=== PATIENT | female | born 1990 | race Caucasian/White ===

== ENCOUNTER 2018-05-16 19:53 | Inpatient (IN) | payer BC, OTHER ==
[~2018-05-16] VITALS: Ht 172.7 cm; Wt 103.0 kg
[2018-05-16] MEDS ORDERED: ONDANSETRON PF 4 MG/2 ML VIAL. IV ONE (20:00)
[2018-05-16] MEDS ORDERED: IV NORMAL SALINE 1,000ML 1,000 ML IV ONE ×4 (20:00→21:45)
[2018-05-16] MEDS ORDERED: MORPHINE SULFATE 4 MG/ML DISP.SYRIN. IV ONE (20:15)
[2018-05-16] MEDS ORDERED: IOHEXOL 300 MG/ML 75 ML VIAL. IV ONE (20:45)
[2018-05-16 21:07] LABS: BASO # 0.4 x10^3/uL (0.0-0.2); BASO % 1 % (0-3); EOS % 0 % (0-3); HEMATOCRIT 50.4 % (36.0-47.0); HEMOGLOBIN 16.1 g/dL (12.0-15.5); LYMPH # 1.6 x10^3/uL (1.0-4.8); LYMPH % 4 % (24-48); MEAN CORPUSCULAR HEMOGLOBIN 28 pg (25-35); MEAN CORPUSCULAR HGB CONC 32 g/dL (31-37); MEAN CORPUSCULAR VOLUME 89 fL (79-100); MONO % 3 % (0-9); NEUT # 33.8 x10^3uL (1.8-7.7); NEUT % 92 % (31-73); PLATELET COUNT 635 x10^3/uL (140-400); RED BLOOD COUNT 5.69 x10^6/uL (3.50-5.40); RED CELL DISTRIBUTION WIDTH 13.9 % (11.5-14.5); WHITE BLOOD COUNT 36.7 x10^3/uL (4.0-11.0)
--- NOTE | 2018-05-16 21:20 | PHYS DOC ---
Adult General Chief Complaint Chief Complaint abd pain HPI HPI 28 years old female presented emergency department with left upper quadrant pain associated with nausea and vomiting described his pain as a sharp constant pain radiated to the epigastric area no fever no chills no urinary symptoms Review of Systems Review of Systems Constitutional: Denies fever or chills [] Eyes: Denies change in visual acuity, redness, or eye pain [] HENT: Denies nasal congestion or sore throat [] Respiratory: Denies cough or shortness of breath [] Cardiovascular: No additional information not addressed in HPI [] : Denies dysuria or hematuria [] Musculoskeletal: Denies back pain or joint pain [] Integument: Denies rash or skin lesions [] Neurologic: Denies headache, focal weakness or sensory changes [] Endocrine: Denies polyuria or polydipsia [] All other systems were reviewed and found to be within normal limits, except as documented in this note. Current Medications Current Medications Current Medications Medications (Trade) Dose Ordered Sig/Christa Start Time Stop Time Status Last Admin Dose Admin Insulin Human Regular (HumuLIN R VIAL) 10 unit 1X ONCE 05/16/18 21:45 05/16/18 21:46 DC 05/16/18 21:57 10 UNIT Insulin Human Regular 150 unit/ Sodium Chloride 151.5 ml @ 0 mls/hr 1X ONCE 05/16/18 22:00 05/16/18 22:01 DC Iohexol (Omnipaque 300 Mg/ml) 75 ml 1X ONCE 05/16/18 20:45 05/16/18 20:46 DC Morphine Sulfate (Morphine 4mg Syringe) 4 mg 1X ONCE 05/16/18 20:15 05/16/18 20:17 DC 05/16/18 21:01 4 MG Ondansetron HCl (Zofran) 4 mg 1X ONCE 05/16/18 20:00 05/16/18 20:17 DC 05/16/18 21:02 4 MG Sodium Chloride 1,000 ml @ 200 mls/hr 1X ONCE 05/16/18 21:45 05/17/18 02:44 Allergies Allergies Allergies Coded Allergies Type Severity Reaction Last Updated Verified No Known Drug Allergies 05/16/18 No Physical Exam Physical Exam Constitutional: Well developed, well nourished, no acute distress, non-toxic appearance. [] HENT: Normocephalic, atraumatic, bilateral external ears normal, oropharynx moist, no oral exudates, nose normal. [] Eyes: PERRLA, EOMI, conjunctiva normal, no discharge. [] Neck: Normal range of motion, no tenderness, supple, no stridor. [] Cardiovascular:Heart rate regular rhythm, no murmur [] Lungs & Thorax: Bilateral breath sounds clear to auscultation [] Abdomen: Tender left upper quadrant epigastric area with rebound tenderness Skin: Warm, dry, no erythema, no rash. [] Back: No tenderness, no CVA tenderness. [] Extremities: No tenderness, no cyanosis, no clubbing, ROM intact, no edema. [] Neurologic: Alert and oriented X 3, normal motor function, normal sensory function, no focal deficits noted. [] Psychologic: Affect normal, judgement normal, mood normal. [] Current Patient Data Vital Signs Vital Signs Date Time Temp Pulse Resp B/P (MAP) Pulse Ox O2 Delivery O2 Flow Rate FiO2 05/16/18 21:01 20 Room Air 05/16/18 20:05 97.4 115 100 Lab Results Laboratory Tests Test 05/16/18 20:50 05/16/18 21:00 05/16/18 21:07 05/16/18 21:27 White Blood Count 36.7 x10^3/uL (4.0-11.0) H Red Blood Count 5.69 x10^6/uL (3.50-5.40) H Hemoglobin 16.1 g/dL (12.0-15.5) H Hematocrit 50.4 % (36.0-47.0) H Mean Corpuscular Volume 89 fL (79-100) Mean Corpuscular Hemoglobin 28 pg (25-35) Mean Corpuscular Hemoglobin Concent 32 g/dL (31-37) Red Cell Distribution Width 13.9 % (11.5-14.5) Platelet Count 635 x10^3/uL (140-400) H Neutrophils (%) (Auto) 92 % (31-73) H Lymphocytes (%) (Auto) 4 % (24-48) L Monocytes (%) (Auto) 3 % (0-9) Eosinophils (%) (Auto) 0 % (0-3) Basophils (%) (Auto) 1 % (0-3) Neutrophils # (Auto) 33.8 x10^3uL (1.8-7.7) H Lymphocytes # (Auto) 1.6 x10^3/uL (1.0-4.8) Monocytes # (Auto) 1.0 x10^3/uL (0.0-1.1) Eosinophils # (Auto) 0.0 x10^3/uL (0.0-0.7) Basophils # (Auto) 0.4 x10^3/uL (0.0-0.2) H Platelet Estimate Pending Sodium Level 133 mmol/L (136-145) L Potassium Level 5.8 mmol/L (3.5-5.1) H Chloride Level 96 mmol/L (98-107) L Carbon Dioxide Level < 5 mmol/L (21-32) *L Anion Gap 32 (6-14) H Blood Urea Nitrogen 33 mg/dL (7-20) H Creatinine 1.2 mg/dL (0.6-1.0) H Estimated GFR (Cockcroft-Gault) 54.3 BUN/Creatinine Ratio 28 (6-20) H Glucose Level 580 mg/dL (70-99) *H Calcium Level 9.4 mg/dL (8.5-10.1) Total Bilirubin 0.4 mg/dL (0.2-1.0) Aspartate Amino Transferase (AST) 15 U/L (15-37) Alanine Aminotransferase (ALT) 20 U/L (14-59) Alkaline Phosphatase 125 U/L (46-116) H Total Protein 9.1 g/dL (6.4-8.2) H Albumin 4.3 g/dL (3.4-5.0) Albumin/Globulin Ratio 0.9 (1.0-1.7) L Lipase 151 U/L (73-393) Lactic Acid Level 3.4 mmol/L (0.4-2.0) H Urine Collection Type Unknown Urine Color Yellow Urine Clarity Clear Urine pH 5.0 Urine Specific [place] 1.025 Urine Protein 100 mg/dl (NEG-TRACE) Urine Glucose (UA) 500 mg/dL (NEG) Urine Ketones (Stick) >=160 mg/dL (NEG) Urine Blood Large (NEG) Urine Nitrite Neg (NEG) Urine Bilirubin Neg (NEG) Urine Urobilinogen Dipstick 0.2 mg/dL (0.2 mg/dL) Urine Leukocyte Esterase Neg (NEG) Urine RBC 11-20 /HPF (0-2) Urine WBC 1-4 /HPF (0-4) Urine Squamous Epithelial Cells Many /LPF Urine Bacteria Few /HPF (0-FEW) Serum Test, Qualitative Negative (NEG) Glucose (Fingerstick) 529 mg/dL (70-99) *H EKG EKG [] Radiology/Procedures Radiology/Procedures [] Course & Med Decision Making Course & Med Decision Making Pertinent Labs and Imaging studies reviewed. (See chart for details) [] Final Impression Final Impression [] Problems: (1) DKA, type 1 Qualifiers: Qualified Codes: E10.10 - Type 1 diabetes mellitus with ketoacidosis without coma Dragon Disclaimer Dragon Disclaimer This electronic medical record was generated, in whole or in part, using a voice recognition dictation system. COLLEEN PAL MD May 16, 2018 21:20
[2018-05-16 21:26] LABS: ALBUMIN 4.3 g/dL (3.4-5.0); ALBUMIN/GLOBULIN RATIO 0.9 (1.0-1.7); ALK PHOS 125 U/L (46-116); ALT (SGPT) 20 U/L (14-59); AST (SGOT) 15 U/L (15-37); BLOOD UREA NITROGEN 33 mg/dL (7-20); BUN/CREATININE RATIO 28 (6-20); CALCIUM 9.4 mg/dL (8.5-10.1); CHLORIDE 96 mmol/L (98-107); CREATININE 1.2 mg/dL (0.6-1.0); GFR 54.3; LIPASE 151 U/L (73-393); POTASSIUM 5.8 mmol/L (3.5-5.1); SODIUM 133 mmol/L (136-145); TOTAL BILIRUBIN 0.4 mg/dL (0.2-1.0); TOTAL PROTEIN 9.1 g/dL (6.4-8.2)
[2018-05-16 21:33] LABS: ANION GAP 32 (6-14); CARBON DIOXIDE < 5 mmol/L (21-32); GLUCOSE 580 mg/dL (70-99)
[2018-05-16 21:40] LABS: PREG TEST PT QUAL NEGATIVE (NEG)
[2018-05-16] MEDS ORDERED: INSULIN REGULAR 100 UNIT/ML 3ML VIAL. IV ONE (21:45)
[2018-05-16 21:50] LABS: BILIRUBIN,URINE NEG (NEG); CLARITY,URINE CLEAR; COLOR,URINE YELLOW; GLUCOSE,URINE 500 mg/dL (NEG)
[2018-05-16 21:51] LABS: BACTERIA,URINE FEW /HPF (0-FEW); NITRITE,URINE NEG (NEG); SQUAMOUS EPITHELIAL CELL,UR MANY /LPF; UROBILINOGEN,URINE 0.2 mg/dL (0.2 mg/dL)
[2018-05-16] MEDS ORDERED: INSULIN REGULAR VIAL 150 UNIT in 0.9 % SODIUM CHLORIDE 150ML 150 ML IV ONE (22:00)
[2018-05-16 22:13] LABS: % BANDS 1 % (0-9); % LYMPHS 7 % (24-48); % MONOS 1 % (0-10)
[2018-05-16 22:15] LABS: PLT ESTIMATE INCREASED (ADEQUATE)
[2018-05-16] MEDS ORDERED: ACETAMINOPHEN 325 MG TABLET PO PRN (22:15)
[2018-05-16 22:22] LABS: % ATYL 1 % (0-0)
--- NOTE | 2018-05-16 23:50 | RAD ---
Examination: CT ABD PELV W/ IV CONTRST ONLY History: luq abdominal pain, diabetic ketoacidosis, high lactic acid, no medical history besides being diabetic and has an insulin pump. Started not to feel well this morning.
gave Omni 300 75 ml iv -2 scan attempts, couldn't hold breath Comparison/Correlation: None Findings: Axial images of the abdomen and pelvis were obtained following 75 cc Omnipaque 300 IV. Significant motion is noted despite scanning the patient twice. The second scan was only of the abdomen. Visualized lung bases are clear. Fluid distends the stomach. Liver is unremarkable. Spleen is normal. Pancreas is normal. Adrenal glands are normal. Kidneys are normal. Large quantity of stool is present in the colon. Appendix is normal in appearance. Diverticulosis of the colon is present. Urinary bladder is distended. Right adnexal follicles are physiologic in appearance. Uterus is unremarkable. No ascites. Minimal pelvic free fluid is presumably physiologic. Bony structures are unremarkable. Sclerotic lesion involving the right femoral neck is appearance. No destructive Impression: Fluid distends the stomach. Fatty infiltration of the liver. No suspicious inflammatory process definitely identified but this exam is very limited due to significant motion. No obstruction. Diverticulosis. Electronically signed by: Titus Granados MD (05/16/2018 11:46 PM) [facility]
[2018-05-17] VITALS (19 sets, daily range): BP systolic 103–155; BP diastolic 50–85
[2018-05-17] MEDS: ONDANSETRON PF 4 MG/2 ML VIAL. IV PRN ×2 (00:10→09:51)
[2018-05-17] MEDS ORDERED: IV DEXTROSE 5 %-0.45 % NACL 1,000 ML IV SCH (00:30)
[2018-05-17] MEDS ORDERED: INSULIN REGULAR VIAL 150 UNIT in 0.9 % SODIUM CHLORIDE 150ML 150 ML IV PRN (00:30)
[2018-05-17] MEDS ORDERED: MAGNESIUM SULFATE 2GM 50 ML IV PRN (00:30)
[2018-05-17] MEDS: MORPHINE SULFATE 4 MG/ML DISP.SYRIN. IV PRN ×2 (00:47→14:17)
[2018-05-17 03:17] LABS: HEMATOCRIT 44.8 % (36.0-47.0); HEMOGLOBIN 14.7 g/dL (12.0-15.5); RED BLOOD COUNT 5.14 x10^6/uL (3.50-5.40); RED CELL DISTRIBUTION WIDTH 13.6 % (11.5-14.5); WHITE BLOOD COUNT 34.5 x10^3/uL (4.0-11.0)
[2018-05-17 03:34] LABS: ALBUMIN 3.5 g/dL (3.4-5.0); ALBUMIN/GLOBULIN RATIO 0.8 (1.0-1.7); CALCIUM 7.9 mg/dL (8.5-10.1); CREATININE 1.1 mg/dL (0.6-1.0); MAGNESIUM 1.9 mg/dL (1.8-2.4); POTASSIUM 4.7 mmol/L (3.5-5.1); TOTAL BILIRUBIN 0.4 mg/dL (0.2-1.0); TOTAL PROTEIN 7.8 g/dL (6.4-8.2)
[2018-05-17] MEDS: IV NORMAL SALINE 1,000ML 1,000 ML IV SCH ×3 (05:09→08:28)
[2018-05-17 07:05] LABS: HEMATOCRIT 41.2 % (36.0-47.0); HEMOGLOBIN 13.8 g/dL (12.0-15.5); RED BLOOD COUNT 4.89 x10^6/uL (3.50-5.40); RED CELL DISTRIBUTION WIDTH 12.9 % (11.5-14.5)
[2018-05-17 07:23] LABS: ALBUMIN 3.2 g/dL (3.4-5.0); ALBUMIN/GLOBULIN RATIO 0.8 (1.0-1.7); CALCIUM 7.7 mg/dL (8.5-10.1); PHOSPHORUS 1.5 mg/dL (2.6-4.7); POTASSIUM 4.1 mmol/L (3.5-5.1); TOTAL BILIRUBIN 0.4 mg/dL (0.2-1.0); TOTAL PROTEIN 7.1 g/dL (6.4-8.2)
[2018-05-17] MEDS ORDERED: DEXTROSE 50% 25 GM / 50ML DISP.SYRIN. IV PRN (08:00)
[2018-05-17] MEDS ORDERED: POTASSIUM CHLORIDE 20 MEQ in IV DEXTROSE 5 %-0.45 % NACL 1,000 ML IV SCH (08:00)
[2018-05-17] MEDS ORDERED: MAGNESIUM SULFATE 2GM 50 ML IV ONE (08:00)
[2018-05-17] MEDS: INSULIN LISPRO 300 UNITS/3 ML INSULN.PEN. SQ SCH ×2 (08:00→12:00)
[2018-05-17] MEDS: POTASSIUM CL 20MEQ D5-0.45NACL 1,000 ML IV SCH ×2 (08:58→14:18)
[2018-05-17] MEDS: VANCOMYCIN PER PHARMACY MC PRN (09:30)
--- NOTE | 2018-05-17 09:46 | RAD ---
CHEST AP ONLY History: INCREASED WBC. Comparison: March 07, 2010 image but no report Cardiomediastinal silhouette: Not grossly enlarged. Central vascularity appears slightly congested. Lungs: Low lung volumes. Hazy opacity in both lungs likely due to crowding and atelectasis, no focal lobar airspace consolidation. Pleura: No evidence of pleural effusion. Pneumothorax: None visualized Support Devices: None. Impression: 1. No focal infiltrate. 2. Apparent central vascular congestion and hazy pulmonary opacity may just be due to low lung volumes, although congestion and mild edema is possible depending on clinical correlation. Electronically signed by: Joshua Osorio MD (05/17/2018 9:43 AM) [id number]
[2018-05-17] MEDS: BISACODYL 10 MG SUPP.RECT PR ONE ×2 (10:00→11:50)
[2018-05-17] MEDS ORDERED: VANCOMYCIN 2 GM in IV NORMAL SALINE 500ML 500 ML IV ONE (11:00)
[2018-05-17] MEDS: HEPARIN for SUB-Q USE 5,000 UNIT/ML VIAL. SQ SCH ×2 (14:17→22:30)
[2018-05-17] MEDS ORDERED: IOHEXOL 300 MG/ML 75 ML VIAL. IV ONE ×2 (14:30→18:15)
[2018-05-17] MEDS ORDERED: IOHEXOL 300 MG/ML 50 ML VIAL. IV ONE (14:30)
--- NOTE | 2018-05-17 16:58 | RAD ---
Examination: CT angiography chest History: History of elevated d-dimer, shortness of breath COMPARISON: None available Technique: Axial CT angiography images of chest were performed with IV contrast. Coronal and sagittal 3-D MIP reformats are performed. Exposure: One or more of the following individualized dose reduction techniques were utilized for this examination: 1. Automated exposure control 2. Adjustment of the mA and/or kV according to patient size 3. Use of iterative reconstruction technique FINDINGS: The central airways are patent. The heart size grossly appears unremarkable. The caliber of the aorta grossly appears unremarkable. There is no evidence of filling defect identified in the main pulmonary arterial trunk and right and left main pulmonary arteries. No evidence of filling defect identified in the distal lobar, segmental branch of the pulmonary arteries. Minimal bibasilar lung atelectasis or infiltrates. No evidence of pleural effusion or pneumothorax. Partially visualized liver, spleen, grossly appears unremarkable. No evidence of lytic bony destructive lesion identified. IMPRESSION: 1. No evidence of pulmonary embolism. 2. Mild bibasilar lung airspace opacities likely atelectasis or infiltrates. Electronically signed by: Norman Roca MD (05/17/2018 4:54 PM) [id number]
[2018-05-17 17:15] LABS: CALCIUM 7.2 mg/dL (8.5-10.1); CREATININE 0.7 mg/dL (0.6-1.0); GFR 101.1; POTASSIUM 3.4 mmol/L (3.5-5.1)
--- NOTE | 2018-05-17 17:21 | RAD ---
Examination: CT HEAD AND MAXILLOFACIAL WO History: CT HEAD AND FACIALS FOR SINUS CONGESTION
Comparison/Correlation: None Findings: Axial images of the head and maxillofacial structures were obtained. Sagittal and coronal reformatted images of the maxillofacial structures was provided. Ventricles are normal size. No intracranial hemorrhage, midline shift, or mass effect. Globes and optic nerves are unremarkable. Frontal sinuses are clear. Mucosal thickening of ethmoid air cells is evident. Mild mucosal thickening of sphenoid sinuses. Mild mucosal thickening of maxillary sinuses. There is no fluid level to suggest acute sinusitis. Opacification of maxillary sinus ostia bilaterally noted greater on the right. Complete opacification right maxillary ostium noted. Near-complete opacification of the left maxillary ostium. Mastoid air cells are unremarkable. Impression: Chronic paranasal sinusitis. Opacification of the right maxillary sinus ostium is completely. Near complete left maxillary sinus ostium opacification. No findings of acute sinusitis. No intracranial hemorrhage. Electronically signed by: Titus Granados MD (05/17/2018 5:18 PM) [facility]
[2018-05-17] MEDS ORDERED: POTASSIUM CL 40MEQ D5-0.45NACL 1,000 ML IV ONE (17:50)
[2018-05-17] MEDS ORDERED: POTASSIUM CHLORIDE 20 MEQ TABLET.ER. PO ONE (18:00)
[2018-05-17] MEDS ORDERED: INSULIN LISPRO 300 UNITS/3 ML INSULN.PEN. SQ PRN (18:15)
[2018-05-17] MEDS ORDERED: INSU100I17 SQ (18:54)
[2018-05-17 19:10] LABS: HEMOGLOBIN A1C 10.4 % (4.8-5.6)
--- NOTE | 2018-05-17 20:08 | HP ---
ADMIT DATE: 05/16/2018 HISTORY OF PRESENT ILLNESS: This is a 28-year-old type 1 diabetic came in through the Emergency Room and not been feeling well for the last several days. Prior to admission, the patient was feeling rundown and tired, came in through the Emergency Room, was found to be in DKA. The patient was also having severe nausea, vomiting, and abdominal pain in her left upper quadrant area. The patient showed marked DKA. She had a white count of 36,000 (NC). The patient's initial blood sugar was 580, creatinine of 1.2, lactic acid of 3.4 (NC). The patient's sodium and potassium 133 low and the potassium is high at 5.8. D-dimer was also elevated. Ketones in urine greater than 160 and also red blood cells in the urine. The patient was admitted for DKA for fluids and protocol per the type 1 DKA protocol, insulin drip, plenty of fluids and further evaluation of electrolytes. PAST MEDICAL HISTORY: Type 1 diabetes, abdominal pain, obesity, nausea, and vomiting. IMMUNIZATIONS: Tetanus, diphtheria toxoid, all up to date. Methicillin-resistant history, and MRSA. ALLERGIES: No known drug allergies. FAMILY HISTORY: Positive for heart disease and diabetes. SOCIAL HISTORY: The patient denies smoking, alcohol or drug use. REVIEW OF SYSTEMS: Abdominal pain with nausea, vomiting, general weakness, and lethargy noted. Denied chest pain, shortness of breath. Denies any melena, hematochezia, or hematemesis. Neurologically, intact. PHYSICAL EXAMINATION: GENERAL: This is a very ill-appearing white female. VITAL SIGNS: Blood pressure approximately 153/90 upwards of 170/80, pulse of 126, temperature 98.2, respiratory rate 32, and oxygen saturation 100%. HEENT: Otherwise, the patient's head was atraumatic, normocephalic. Eyes: PERRLA without jaundice. The mouth and throat were normal. NECK: Supple without JVD, carotid bruits or thyromegaly. LUNGS: Diminished, but clear. CARDIOVASCULAR: Regular sinus rhythm. ABDOMEN: Soft, diffuse tenderness in the left upper quadrant area, but no rebounding, no guarding. Positive bowel sounds, no hepatosplenomegaly was noted. EXTREMITIES: No clubbing, cyanosis, or edema. Mucous membranes were dry. IMPRESSION: Type 1 diabetes with diabetic ketoacidosis, probable sepsis, hypokalemia, chronic kidney disease stage 3, elevated D-dimer, and hematuria, nonspecific in the urine. The patient otherwise is resting fairly comfortably, making fairly good progress overall. The patient did have chronic paranasal sinusitis (NC) opacification of the right maxillary sinus ostium near complete maxillary sinus ostium, could be the source of her white count, these were chronic findings. However, her white count was elevated at 36,000 (NC), she started on vancomycin and Levaquin, make further evaluation on her as indicated and we will continue to monitor the patient accordingly and make further assessment as noted. Impression therefore of as noted above, sepsis, type 1 diabetic ketoacidosis. Continue with IV antibiotic therapy, fluids, and ICU intensive. LD RING MD DR: CAITLYN/dedra JOB#: [id number] / [id number]
[2018-05-17] MEDS: IPRATRPIUM/ALBUTEROL 0.5/2.5MG 3 ML NEBU. NEB PRN (20:51)
[2018-05-17] MEDS: VANCOMYCIN 1.5 GM in IV NORMAL SALINE 500ML 500 ML IV SCH (22:58)
[2018-05-17] MEDS: POTASSIUM CL 40MEQ D5-0.45NACL 1,000 ML IV SCH (23:38)
[2018-05-18] VITALS (11 sets, daily range): BP systolic 107–140; BP diastolic 52–81
[2018-05-18] MEDS: POTASSIUM CL 40MEQ D5-0.45NACL 1,000 ML IV SCH ×2 (05:14→10:17)
[2018-05-18 05:53] LABS: BASO % 0 % (0-3); EOS % 0 % (0-3); HEMATOCRIT 34.9 % (36.0-47.0); LYMPH # 1.7 x10^3/uL (1.0-4.8); LYMPH % 13 % (24-48); MEAN CORPUSCULAR HEMOGLOBIN 29 pg (25-35); MEAN CORPUSCULAR HGB CONC 35 g/dL (31-37); MEAN CORPUSCULAR VOLUME 83 fL (79-100); MONO # 0.9 x10^3/uL (0.0-1.1); MONO % 7 % (0-9); NEUT # 10.9 x10^3uL (1.8-7.7); NEUT % 80 % (31-73); PLATELET COUNT 319 x10^3/uL (140-400); RED BLOOD COUNT 4.22 x10^6/uL (3.50-5.40); RED CELL DISTRIBUTION WIDTH 13.4 % (11.5-14.5); WHITE BLOOD COUNT 13.6 x10^3/uL (4.0-11.0)
[2018-05-18] MEDS: HEPARIN for SUB-Q USE 5,000 UNIT/ML VIAL. SQ SCH ×3 (05:54→20:29)
[2018-05-18 06:03] LABS: CALCIUM 7.6 mg/dL (8.5-10.1); CREATININE 0.6 mg/dL (0.6-1.0); GFR 120.8; POTASSIUM 3.7 mmol/L (3.5-5.1)
[2018-05-18] MEDS ORDERED: IPRATRPIUM/ALBUTEROL 0.5/2.5MG 3 ML NEBU. NEB SCH ×2 (09:00→21:00)
[2018-05-18] MEDS: IPRATRPIUM/ALBUTEROL 0.5/2.5MG 3 ML NEBU. NEB PRN (10:13)
[2018-05-18] MEDS: LACTOBACILLUS RHAMNOSUS GG 1 CAPSULE. PO SCH ×2 (10:16→20:26)
[2018-05-18] MEDS: VANCOMYCIN 1.5 GM in IV NORMAL SALINE 500ML 500 ML IV SCH ×2 (11:42→22:24)
[2018-05-18] MEDS ORDERED: ONDANSETRON PF 4 MG/2 ML VIAL. ONE (12:23)
[2018-05-18] MEDS ORDERED: ONDANSETRON PF 4 MG/2 ML VIAL. IV PRN (12:30)
[2018-05-18] MEDS ORDERED: DEXTROSE 50% 25 GM / 50ML DISP.SYRIN. IV PRN (13:15)
[2018-05-18] MEDS ORDERED: INSULIN LISPRO 300 UNITS/3 ML INSULN.PEN. SQ SCH (17:00)
--- NOTE | 2018-05-18 19:48 | PN ---
DATE: SUBJECTIVE: The patient first came in with DKA. She is doing much better overall. Sugars are down in the 100s to low 200s right now and the patient seems to be making feeling much, much better. The patient in turn, white count has come down from 36,000 down to 13,000. She still continues on IV antibiotic therapy. We are going ahead and keeping her on those antibiotics. We will take her off her fluids and turn her back over to her insulin pump to see if we can control her sugar that way. I think she still needs the IV antibiotic therapy. She does have instances of chronic sinusitis, which may have been "was instigating'' that. The urine was unremarkable as far as cultures go. The patient's CTA because of the positive D-dimer were negative except for possible atelectasis or infiltrates, which were mild. In any case, the patient is making excellent progress and we are adjusting her continue with giving her back on her insulin pump monitoring that as well as IV antibiotic therapy. Her heart rate still in the low 100s and we will continue to monitor that. She is not having any symptoms with that she is perfectly asymptomatic with that situation at hand. IMPRESSION: Diabetic ketoacidosis, sepsis, hypokalemia, chronic kidney disease stage 3, elevated D-dimer, hematuria, leukocytosis, chronic sinusitis. PLAN: Continue with IV antibiotic therapy for now, convert back over to her insulin pump, continue monitor for any other changes. LD RING MD DR: CAITLYN/dedra JOB#: [id number] / [id number]
[2018-05-18] MEDS ORDERED: POTASSIUM CHLORIDE 20 MEQ TABLET.ER. PO ONE (21:00)
[2018-05-18 22:26] LABS: VANC TR 8.6 mcg/mL (10.0-20.0)
[2018-05-19] MEDS: HEPARIN for SUB-Q USE 5,000 UNIT/ML VIAL. SQ SCH (04:59)
[2018-05-19 05:36] VITALS: BP 129/84
[2018-05-19 06:15] LABS: BASO # 0.1 x10^3/uL (0.0-0.2); BASO % 1 % (0-3); EOS % 0 % (0-3); HEMATOCRIT 34.2 % (36.0-47.0); LYMPH # 1.9 x10^3/uL (1.0-4.8); LYMPH % 30 % (24-48); MEAN CORPUSCULAR HEMOGLOBIN 29 pg (25-35); MEAN CORPUSCULAR HGB CONC 35 g/dL (31-37); MEAN CORPUSCULAR VOLUME 82 fL (79-100); MONO # 0.3 x10^3/uL (0.0-1.1); MONO % 5 % (0-9); NEUT % 63 % (31-73); PLATELET COUNT 283 x10^3/uL (140-400); RED BLOOD COUNT 4.16 x10^6/uL (3.50-5.40); RED CELL DISTRIBUTION WIDTH 13.1 % (11.5-14.5); WHITE BLOOD COUNT 6.3 x10^3/uL (4.0-11.0)
[2018-05-19 06:43] LABS: ALBUMIN 2.5 g/dL (3.4-5.0); ALBUMIN/GLOBULIN RATIO 0.7 (1.0-1.7); CALCIUM 8.1 mg/dL (8.5-10.1); CREATININE 0.5 mg/dL (0.6-1.0); GFR 149.1; POTASSIUM 3.5 mmol/L (3.5-5.1); TOTAL BILIRUBIN 0.5 mg/dL (0.2-1.0)
[2018-05-19] MEDS ORDERED: VANCOMYCIN 1.5 GM in IV NORMAL SALINE 500ML 500 ML IV SCH (07:30)
[2018-05-19] MEDS ORDERED: POTASSIUM CHLORIDE 20 MEQ TABLET.ER. PO ONE (07:45)
[2018-05-19] MEDS: LACTOBACILLUS RHAMNOSUS GG 1 CAPSULE. PO SCH (08:15)
[2018-05-19] MEDS ORDERED: CIPR500T94 PO (08:49)
[2018-05-19 09:17] VITALS: BP 131/92
[2018-05-19] MEDS: VANCOMYCIN PER PHARMACY MC PRN (10:05)
--- NOTE | 2018-05-19 12:08 | DS ---
DATE OF DISCHARGE: 05/16/2018 HOSPITAL COURSE: A 28-year-old female with history of diabetes, been having problems with her insulin pump, not functioning properly. She came in through the Emergency Room feeling extremely run down and tired and having severe nausea, vomiting and abdominal pain in the left upper quadrant. Seen in the ER, she was noted to have a white count of 36,000. Initial blood sugar of 580. Lactic acid was elevated. The patient also had some abnormalities with her potassium of 5.8 and slightly low sodium of 133. In any case, she was placed on the DKA protocol given massive amounts of fluid as well as insulin drip in the ICU. Critical there also being septic. She was started on vancomycin and levothyroxine. Patient's imaging of her head because of her nausea and vomiting and discomfort showed problems of chronic sinusitis and opacification of the maxillary sinus ostia, bilaterally noted greater on the right, complete opacification of the right maxillary ostium noted, near complete opacification of the left maxillary ostium. This may have been the source of infection as her CT scan of her abdomen and pelvis demonstrated no obvious evidences of diverticulitis or other infectious etiology. Her urine was unremarkable as far as possibility of an infection. In any case, the patient made excellent progress. Her white count came down from 36,000 down to 6000. She was basically afebrile. She made excellent progress. Her sugars came down into range and because she was having problems with the new monitors that they had set her up for her insulin pump. The patient switched over to just a sliding scale and her sugars remain in the upper 50s to low 70s and she said she would rather stay on that. In any case, the patient made excellent progress during the rest of her hospitalization. There were no complications. She recovered nicely and she will continue on oral antibiotics as well. IMPRESSION: Sepsis, diabetic ketoacidosis, leukocytosis, chronic sinusitis with maxillary opacification, moderate-protein malnutrition, mild hematuria, asymptomatic. PLAN: The patient will be discharged home on a sliding scale, diabetic diet, decreased activity. Follow up in 7-10 days in the office or sooner as needed. LD RING MD DR: CAITLYN/dedra JOB#: [id number] / [id number]
[2018-05-20 15:43] LABS: % SEGS 90 % (35-66)
== END 2018-05-19 09:50 | disposition home or self-care (01) | DRG 871 ==
LOC: ER 19:53 → ICU 23:47 → 1 SOUTH 05-18 16:20
PROVIDERS: ADMIT Family Medicine; ATTEND Family Medicine
DX: A41.9 Sepsis, unspecified organism (principal); E10.10 Type 1 diabetes mellitus with ketoacidosis without coma; E44.0 Moderate protein-calorie malnutrition; E10.22 Type 1 diabetes mellitus with diabetic chronic kidney disease; E87.6 Hypokalemia; J32.0 Chronic maxillary sinusitis; N18.3 Chronic kidney disease, stage 3 (moderate); E66.9 Obesity, unspecified; R31.9 Hematuria, unspecified; Z83.3 Family history of diabetes mellitus; Z82.49 Family history of ischemic heart disease and other diseases of the circulatory system; Z68.34 Body mass index [BMI] 34.0-34.9, adult; Z86.14 Personal history of Methicillin resistant Staphylococcus aureus infection
CPT/HCPCS: 36415; 70450; 70486; 71045; 71275; 74177; 80048; 80053; 80202; 81001; 82947; 83036; 83605; 83690; 83735; 84100; 84703; 85007; 85025; 85027; 85379; 87040; 87641; 94640; 96374; 96375; G0238; J1644; J1815; J1956; J2270; J2405; J3370; J3475; J7040; J7042; J7620; Q9967; 99285-25; J7030